=== PATIENT | male | born 1960 | race Caucasian/White ===

== ENCOUNTER 2017-11-30 15:46 | Emergency (ER) | payer BC, OTHER ==
--- NOTE | 2017-11-30 18:00 | EDM.PDOC ---
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 Patient that the TB needle was used on felt by patient and our hospitalist to be relatively low risk for contagion. Devon is UTD on tetanus and Hep B vaccine. He and source of contamination have had blood drawn today for testing. 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 below) (none) - Related Data Allergies Allergy/AdvReac Type Severity Reaction Status Date / Time Influenza Virus Vaccines Allergy Numbness Verified 11/30/17 16:05 Home Meds: Home Meds Citalopram Hydrobromide [Celexa] 1 tab PO DAILY 11/30/17 [History] Fluticasone Propionate [Flonase] 2 sprays LINDEN DAILY 11/30/17 [History] Simvastatin [Zocor] 20 mg PO BEDTIME 11/30/17 [History] Tamsulosin [Tamsulosin 24 Hr] 0.4 mg PO DAILY 11/30/17 [History] Past Medical History Cardiovascular History: Reports: Hypertension Genitourinary History: Reports: BPH Musculoskeletal History: Reports: Fracture Psychiatric History: Reports: Depression Social & Family History - Tobacco Use Smoking Status *Q: Never Smoker - Recreational Drug Use Recreational Drug Use: No ED ROS GENERAL - Review of Systems Review Of Systems: See Below Constitutional: Reports: No Symptoms Skin: Reports: Wound (needle stick R thumb) Neurological: Reports: No Symptoms ED EXAM, SKIN/RASH Exam: See Below Exam Limited By: No Limitations General Appearance: Alert, WD/WN, No Apparent Distress Neurological: Alert, Oriented, CN II-XII Intact, Normal Cognition, No Motor/ Sensory Deficits Psychiatric: Normal Affect, Normal Mood Skin: Warm, Dry, Normal Color, No Rash, Wound/Incision (Tiny, non-bleeding puncture to the collins surface of the R thumb. ) Location, Skin: Upper Extremity, Right Characteristics: Fine Course - Vital Signs Text/Narrative:: Declined HIV prophylaxis, will await results of testing. Last Recorded V/S: Last Vital Signs Temp 36.0 C 11/30/17 16:02 Pulse 89 11/30/17 16:02 Resp 16 11/30/17 16:02 BP 159/87 H 11/30/17 16:02 Pulse Ox 93 L 11/30/17 16:02 Departure - Departure Time of Disposition: 17:55 Disposition: Home, Self-Care 01 Condition: Good Clinical Impression: Needle stick injury of finger of right hand Qualifiers: Encounter type: initial encounter Qualified Code(s): S61.239A - Puncture wound without foreign body of unspecified finger without damage to nail, initial encounter; W27.3XXA - Contact with needle (sewing), initial encounter; W27.3XXA - Contact with needle (sewing), initial encounter - Discharge Information Referrals: Tonya Acuna MD [Primary Care Provider] - Forms: ED Department Discharge Additional Instructions: Follow up on outstanding blood work. Recheck as needed.
== END 2017-11-30 18:15 | disposition home or self-care (01) ==
LOC: JP.ED 15:46
DX: S61.031A Puncture wound without foreign body of right thumb without damage to nail, initial encounter (principal); I10 Essential (primary) hypertension; F32.9 Major depressive disorder, single episode, unspecified; Z79.899 Other long term (current) drug therapy; Z88.7 Allergy status to serum and vaccine; W27.3XXA Contact with needle (sewing), initial encounter
CPT/HCPCS: 99283

== ENCOUNTER 2022-01-14 06:22 | Day surgery (SDC) | payer BC ==
[2022-01-14] MEDS ORDERED: Propofol 200 MG/20 ML SDV ONE ×2 (07:02→08:08)
[2022-01-14] MEDS ORDERED: Midazolam 1 MG/ML 2 ML SDV ONE (07:02)
[2022-01-14] MEDS ORDERED: fentaNYL 100 MCG/2 ML SDV ONE (07:02)
[2022-01-14] MEDS ORDERED: Sodium Chloride 0.9% 1,000 ML IV SCH (07:30)
== END 2022-01-14 09:23 | disposition home or self-care (01) ==
LOC: JP.SDS 06:22
PROVIDERS: ATTEND Surgery
DX: Z12.11 Encounter for screening for malignant neoplasm of colon (principal); K63.5 Polyp of colon; K62.1 Rectal polyp; K21.9 Gastro-esophageal reflux disease without esophagitis
CPT/HCPCS: 88305; J2250; J2704; J3010; J7030